=== PATIENT | male | born 1975 | race Caucasian/White ===

== ENCOUNTER 2019-12-18 15:09 | Emergency (ER) | payer SELFPAY ==
[~2019-12-18] VITALS: Ht 170.2 cm; Wt 74.8 kg
[2019-12-18 15:16] VITALS: BP 182/104
--- NOTE | 2019-12-18 15:25 | NUR ---
Pt triaged, sent back to lobby awaiting for bed.
--- NOTE | 2019-12-18 16:23 | NUR ---
44 Y/O MALE C/O 10 BURNING PENILE PAIN X 2 DAYS. DENIES URINARY SYMPTOMS. REDNESS NOTED TO SHAFT OF PENIS. DENIES TESTICULAR PAIN. PT ALSO C/O RT EYE REDNESS. DENIES TRAUMA TO EYE. DENIES VISION CHANGE OR PAIN. PT STATES HE TOOK TYLENOL AT 1200 WITH NO PAIN RELIEF. X 1 SIDERAIL RAISED. VSS MEDHX: DM, HTN ALLERGIES: NKA
--- NOTE | 2019-12-18 16:28 | NUR ---
PT AMBULATED TO RESTROOM, URINE COLLECTED FROM PT AT THIS TIME.
[2019-12-18 16:58] VITALS: BP 182/104
--- NOTE | 2019-12-18 16:59 | NUR ---
Patient discharged with v/s stable. Written and verbal after care instructions given and explained. Patient alert, oriented and verbalized understanding of instructions. Ambulatory with steady gait. All questions addressed prior to discharge. ID band removed. Patient advised to follow up with PMD. Rx of NORCO, KEFLEX, AND BACITRACIN given. Patient educated on indication of medication including possible reaction and side effects. Opportunity to ask questions provided and answered.
[2019-12-18 17:48] LABS: APPEARANCE,URINE CLEAR (CLEAR); BILIRUBIN,URINE NEGATIVE (NEGATIVE); BLOOD, URINE NEGATIVE (NEGATIVE); COLOR,URINE YELLOW (YELLOW); LEUKOCYTE ESTERASE ,URINE NEGATIVE (NEGATIVE); NITRITE, URINE NEGATIVE (NEGATIVE); UGLUCOSE 3+ (NEGATIVE)
== END 2019-12-18 16:59 | disposition home or self-care (01) ==
LOC: MED 15:09
DX: N48.89 Other specified disorders of penis (principal); E11.9 Type 2 diabetes mellitus without complications; I10 Essential (primary) hypertension
CPT/HCPCS: 81003; 99283

== ENCOUNTER 2022-12-12 11:22 | Emergency (ER) | payer SELFPAY ==
[~2022-12-12] VITALS: Ht 167.6 cm; Wt 79.8 kg
[2022-12-12 11:31] VITALS: BP 189/94
--- NOTE | 2022-12-12 11:35 | NUR ---
47M presents to ED with c/o epigastric pain, n/v since last night. Pt reports a constant, burning like, 9/10 non radiating pain to epigastric region. Pt reports dizziness since this morning, normal BM's, last meal eaten was at 1600 yesterday. Pt denies taking medication for pain or nausea.
[2022-12-12] MEDS ORDERED: KETOROLAC 30 MG/ML VIAL IM ONE (11:40)
[2022-12-12] MEDS ORDERED: ONDANSETRON 4 MG ODT PO ONE (11:40)
[2022-12-12 11:55] LABS: BASOPHILS % (AUTO) 0.2 % (0.0-2.0); HEMATOCRIT 45.9 % (36-52); HEMOGLOBIN 14.5 g/dL (12.0-18.0); LYMPHOCYTES # (AUTO) 0.7 K/uL (2.0-11.5); LYMPHOCYTES % (AUTO) 8.5 % (20.5-51.1); MEAN CORPUSCULAR HEMOGLOBIN 23 pg (27-31); MEAN CORPUSCULAR HGB CONC 32 g/dL (33-37); MEAN CORPUSCULAR VOLUME 73.4 fL (80-94); MONOCYTES # (AUTO) 0.3 K/uL (0.8-1.0); MONOCYTES % (AUTO) 4.5 % (1.7-9.3); NEUTROPHILS # (AUTO) 6.7 K/uL (1.8-7.7); NEUTROPHILS % (AUTO) 86.8 % (42.2-75.2); PLATELET COUNT (AUTO) 283 K/uL (140-450); RED BLOOD CELL COUNT(AUTO) 6.25 MIL/uL (4.20-6.10); RED CELL DISTRIBUTION WIDTH 17.3 % (11.6-13.7); WHITE BLOOD COUNT (AUTO) 7.7 K/uL (4.8-10.8)
[2022-12-12 12:06] LABS: BILIRUBIN,URINE NEGATIVE (NEGATIVE); BLOOD, URINE NEGATIVE (NEGATIVE); COLOR,URINE YELLOW (YELLOW); LEUKOCYTE ESTERASE ,URINE NEGATIVE (NEGATIVE); NITRITE, URINE NEGATIVE (NEGATIVE); PH,URINE >=9.0 (5.0-9.0); UGLUCOSE 2+ (NEGATIVE)
[2022-12-12 12:08] LABS: APPEARANCE,URINE CLEAR (CLEAR)
[2022-12-12 12:12] LABS: ALBUMIN 4.8 g/dL (3.4-5.0); ANION GAP 12.4 (8-16); CARBON DIOXIDE 39.2 mmol/L (21-32); CREATININE 1.3 mg/dL (0.6-1.3); POTASSIUM 3.6 mmol/L (3.5-5.1); TOTAL BILIRUBIN 0.3 mg/dL (0.0-1.0)
[2022-12-12 12:18] LABS: RBC,URINE 0-5 /HPF (0-5); WBC,URINE 0-5 /HPF (0-5)
[2022-12-12] MEDS ORDERED: NACL 0.9% 1,000 ML IV ONE (13:00)
[2022-12-12] MEDS ORDERED: MORPHINE SULFATE 4 MG/ML SYR IVP ONE (13:00)
[2022-12-12] MEDS ORDERED: ONDANSETRON 4 MG/2 ML VIAL IVP ONE (13:00)
[2022-12-12 13:53] VITALS: BP 199/82
--- NOTE | 2022-12-12 13:59 | NUR ---
BP 199/82, DR. KEYS MADE AWARE, NO NEW ORDERS AT THIS TIME.
[2022-12-12] MEDS ORDERED: ONDA-188 PO (14:26)
[2022-12-12] MEDS ORDERED: ACET-5629 PO (14:26)
--- NOTE | 2022-12-12 15:18 | NUR ---
IV removed, catheter intact and site benign. Applied folded 4x4 gauze and tape to stop bleeding.
--- NOTE | 2022-12-12 15:20 | NUR ---
Patient discharged with v/s stable. Written and verbal after care instructions GASTRITIS AND VOMITING given and explained. Patient alert, oriented and verbalized understanding of instructions. Ambulatory with steady gait. All questions addressed prior to discharge. ID band removed. Patient advised to follow up with PMD. Rx of ZOFRAN AND PERCOCET given. Patient educated on indication of medication including possible reaction and side effects. Opportunity to ask questions provided and answered.
== END 2022-12-12 15:20 | disposition home or self-care (01) ==
LOC: MED 11:22
DX: R10.13 Epigastric pain (principal); R11.2 Nausea with vomiting, unspecified; E11.9 Type 2 diabetes mellitus without complications; I10 Essential (primary) hypertension; Z79.4 Long term (current) use of insulin; Z79.899 Other long term (current) drug therapy
CPT/HCPCS: 36415; 74177; 80053; 81001; 83690; 85025; 96361; 96372; 96374; 96375; 99285; J1885; J2270; J2405; J7030; Q0162; Q9967